=== PATIENT | female | born 1975 | race Asian ===

== ENCOUNTER 2020-11-02 21:37 | Inpatient (IN) | payer BC ==
[~2020-11-02] VITALS: Ht 162.6 cm; Wt 49.4 kg
[2020-11-02] MEDS ORDERED: ONDANSETRON HCL 4MG/2ML INJ IV STA (22:01)
[2020-11-02] MEDS ORDERED: AZITHROMYCIN 500 MG in DEXT 5% WATER 250 ML IV ONE (22:15)
[2020-11-02] MEDS ORDERED: SODIUM CHLORIDE 0.9% 1000ML BAG (SEPSIS BOLUS) IV ONE (22:15)
[2020-11-02] MEDS ORDERED: CEFTRIAXONE 1 G PREMIX 50 ML IV ONE (22:15)
[2020-11-02 22:46] LABS: HEMATOCRIT. 39.3 % (36.0-48.0); HEMOGLOBIN. 13.3 g/dL (12.0-16.0); MEAN CORPUSCULAR HEMOGLOBIN 28.5 pg (28.0-32.0); MEAN CORPUSCULAR VOLUME 84.3 fL (81.0-99.0); MEAN PLATELET VOLUME 6.9 fl (7.4-10.4); PLATELET 390 x1000/uL (130-400); RED BLOOD CELL COUNT 4.66 mill/uL (4.2-5.4); RED CELL DISTRIBUTION WIDTH 12.4 % (11.6-14.6)
[2020-11-02 22:50] LABS: CLARITY URINE CLEAR (CLEAR); COLOR URINE YELLOW (YELLOW); KETONES URINE 2+ (NEGATIVE); LEUKOCYTE ESTERASE URINE NEGATIVE (NEGATIVE); NITRITE URINE NEGATIVE (NEGATIVE); OCCULT BLOOD URINE NEGATIVE (NEGATIVE); PH URINE 7.5 (4.5-8.0); PROTEIN URINE NEGATIVE (NEGATIVE); SPECIFIC GRAVITY URINE 1.019 (1.005-1.030); UROBILINOGEN URINE 0.2 E.U./dL (0.2-1.0)
[2020-11-02 22:53] LABS: CHLORIDE 90 mEq/L (98-107)
[2020-11-02 22:55] LABS: INR 1.1; PROTHROMBIN TIME 11.4 sec (9.6-11.0)
[2020-11-02 22:56] LABS: HCG SCREEN NEGATIVE
[2020-11-02 23:36] LABS: PLATELET ESTIMATE NORMAL
[2020-11-03 01:06] LABS: CHLORIDE 91 mEq/L (98-107)
[2020-11-03] MEDS ORDERED: BACITRACIN ZINC OINT UDPKT TOP ONE (01:30)
[2020-11-03] MEDS ORDERED: CLONIDINE 0.1MG TABLET PO PRN (02:45)
[2020-11-03] MEDS ORDERED: MAGNESIUM/ALUMINUM HYDROXIDE/SIMETHICONE 30ML UDC PO PRN (02:45)
[2020-11-03] MEDS ORDERED: GUAIFENESIN 200MG/10ML SUGAR FREE UDC PO PRN (02:45)
[2020-11-03] MEDS ORDERED: IPRATROPIUM/ALBUTEROL 0.5-3(2.5)MG/3ML NEB NEB PRN (02:45)
[2020-11-03] MEDS ORDERED: ONDANSETRON HCL 4MG/2ML INJ IV PRN (02:45)
[2020-11-03] MEDS ORDERED: LORAZEPAM 2MG/ML CPJ IV PRN (02:45)
[2020-11-03] MEDS ORDERED: ACETAMINOPHEN 325MG TABLET PO PRN (02:45)
[2020-11-03] MEDS ORDERED: DOCUSATE SODIUM 100MG CAPSULE PO PRN (02:45)
[2020-11-03] MEDS ORDERED: DIPHENHYDRAMINE 50MG/ML VIAL IV PRN (02:45)
[2020-11-03] MEDS ORDERED: NA PHOS,M-B/NA PHOS,DI-BA ENEMA 118ML PR PRN (02:45)
[2020-11-03] MEDS ORDERED: HYDROCODONE/ACETAMINOPHEN 5/325MG TABLET PO PRN (02:45)
[2020-11-03] MEDS ORDERED: MORPHINE SULFATE 2 MG/ML CPJ (NOT FOR IM USE) IV PRN (02:45)
[2020-11-03 05:00] VITALS: BP 128/67
[2020-11-03] MEDS ORDERED: AMOX-494 MT (05:53)
[2020-11-03] MEDS ORDERED: ALBU05 NEB (05:56)
[2020-11-03] MEDS ORDERED: DOXY100C2 MT (05:56)
[2020-11-03] MEDS ORDERED: FLOV44 INH (05:56)
[2020-11-03] MEDS: SODIUM CHLORIDE 0.9% 1,000 ML IV SCH ×2 (06:18→17:10)
[2020-11-03 06:40] LABS: CHLORIDE 91 mEq/L (98-107)
[2020-11-03] MEDS ORDERED: INFLUENZA VACCINE 05/PF 0.5 ML VIAL IM ONE (07:00)
[2020-11-03] MEDS ORDERED: PNEUMOCOCCAL 23-VAL P-SAC VAC 0.5 ML IM ONE (07:00)
[2020-11-03 07:59] VITALS: BP 115/73
[2020-11-03] MEDS ORDERED: POTASSIUM CHLORIDE 20MEQ TABLET SR PO NR (09:00)
[2020-11-03] MEDS: ENOXAPARIN 40MG/0.4ML SYR SUBCUT SCH (09:08)
[2020-11-03 09:50] LABS: PHOSPHORUS 2.2 mg/dL (2.5-4.9)
[2020-11-03 12:16] VITALS: BP 106/54
[2020-11-03 16:08] VITALS: BP 118/68
[2020-11-03] MEDS ORDERED: AZITHROMYCIN 500 MG in DEXT 5% WATER 250 ML IV SCH ×2 (21:00→22:00)
[2020-11-03] MEDS: IPRATROPIUM/ALBUTEROL 0.5-3(2.5)MG/3ML NEB HHN SCH (21:16)
[2020-11-03] MEDS: BUDESONIDE 0.5MG/2ML NEB HHN SCH (21:17)
[2020-11-04] VITALS: BP 112/67
[2020-11-04 04:00] VITALS: BP 110/59
[2020-11-04] MEDS: SODIUM CHLORIDE 0.9% 1,000 ML IV SCH ×2 (05:25→19:15)
[2020-11-04 06:48] LABS: BASOPHILS % 0.2 % (0.0-2.0); EOSINOPHILS % 1.2 % (0.0-5.0); HEMATOCRIT. 32.9 % (36.0-48.0); HEMOGLOBIN. 11.5 g/dL (12.0-16.0); MEAN CORPUSCULAR VOLUME 82.7 fL (81.0-99.0); MEAN PLATELET VOLUME 7.3 fl (7.4-10.4); NEUTROPHILS % 75.6 % (40.0-76.0); PLATELET 335 x1000/uL (130-400); RED BLOOD CELL COUNT 3.98 mill/uL (4.2-5.4); RED CELL DISTRIBUTION WIDTH 12.5 % (11.6-14.6)
[2020-11-04 08:00] VITALS: BP 132/78
[2020-11-04] MEDS: IPRATROPIUM/ALBUTEROL 0.5-3(2.5)MG/3ML NEB HHN SCH ×2 (08:07→21:10)
[2020-11-04] MEDS: BUDESONIDE 0.5MG/2ML NEB HHN SCH ×2 (08:07→21:09)
[2020-11-04 08:41] LABS: CHLORIDE 89 mEq/L (98-107)
[2020-11-04] MEDS: ENOXAPARIN 40MG/0.4ML SYR SUBCUT SCH (08:45)
[2020-11-04 09:23] LABS: PHOSPHORUS 1.7 mg/dL (2.5-4.9)
[2020-11-04 09:25] LABS: LDL CHOLESTEROL 35 mg/dL (5-100)
[2020-11-04 09:26] LABS: T4 FREE 1.72 ng/dL (0.76-1.46)
[2020-11-04 09:28] LABS: HDL CHOLESTEROL 52 mg/dL (40-59)
[2020-11-04] MEDS ORDERED: POTASSIUM CHLORIDE 20MEQ TABLET SR PO SCH (10:30)
[2020-11-04 12:00] VITALS: BP 120/67
[2020-11-04] MEDS ORDERED: SODIUM PHOS,M-BASIC-D-BASIC 20 MM in DEXT 5% WATER 243.3333 ML IV SCH (12:00)
[2020-11-04 16:00] VITALS: BP 108/58
[2020-11-04 20:00] VITALS: BP 120/57
[2020-11-04] MEDS: DEMECLOCYCLINE HCL 300MG TABLET PO SCH (21:48)
[2020-11-05] VITALS: BP 120/75
[2020-11-05 04:00] VITALS: BP 109/52
[2020-11-05 06:36] LABS: HEMATOCRIT. 34.6 % (36.0-48.0); HEMOGLOBIN. 12.2 g/dL (12.0-16.0); MEAN CORPUSCULAR HEMOGLOBIN 29.3 pg (28.0-32.0); MEAN CORPUSCULAR VOLUME 82.8 fL (81.0-99.0); MEAN PLATELET VOLUME 6.8 fl (7.4-10.4); PLATELET 347 x1000/uL (130-400); RED BLOOD CELL COUNT 4.18 mill/uL (4.2-5.4); RED CELL DISTRIBUTION WIDTH 12.6 % (11.6-14.6)
[2020-11-05 06:37] LABS: CHLORIDE 94 mEq/L (98-107)
[2020-11-05 06:41] LABS: PHOSPHORUS 2.5 mg/dL (2.5-4.9)
[2020-11-05 08:00] VITALS: BP 113/60
[2020-11-05] MEDS: IPRATROPIUM/ALBUTEROL 0.5-3(2.5)MG/3ML NEB HHN SCH ×3 (08:07→21:19)
[2020-11-05] MEDS: BUDESONIDE 0.5MG/2ML NEB HHN SCH ×2 (08:07→21:19)
[2020-11-05] MEDS: DEMECLOCYCLINE HCL 300MG TABLET PO SCH ×2 (08:41→17:37)
[2020-11-05] MEDS: ENOXAPARIN 40MG/0.4ML SYR SUBCUT SCH (08:41)
[2020-11-05] MEDS: SODIUM CHLORIDE 0.9% 1,000 ML IV SCH ×2 (08:44→21:43)
[2020-11-05 11:35] LABS: PLATELET ESTIMATE NORMAL
[2020-11-05 12:00] VITALS: BP 118/67
[2020-11-05 16:00] VITALS: BP 116/64
[2020-11-05 20:00] VITALS: BP 139/87
[2020-11-06] VITALS: BP 114/67
[2020-11-06 04:00] VITALS: BP 119/63
[2020-11-06 08:19] VITALS: BP 126/74
[2020-11-06] MEDS: ENOXAPARIN 40MG/0.4ML SYR SUBCUT SCH (08:55)
[2020-11-06] MEDS: DEMECLOCYCLINE HCL 300MG TABLET PO SCH ×2 (08:55→17:35)
[2020-11-06] MEDS: IPRATROPIUM/ALBUTEROL 0.5-3(2.5)MG/3ML NEB HHN SCH ×2 (09:50→14:42)
[2020-11-06] MEDS: BUDESONIDE 0.5MG/2ML NEB HHN SCH (09:51)
[2020-11-06 12:10] VITALS: BP 124/78
[2020-11-06 16:00] VITALS: BP 116/78
[2020-11-06 20:00] VITALS: BP 132/74
[2020-11-07] VITALS: BP 123/72
[2020-11-07 04:00] VITALS: BP 119/71
[2020-11-07] MEDS: ENOXAPARIN 40MG/0.4ML SYR SUBCUT SCH (08:26)
[2020-11-07] MEDS: DEMECLOCYCLINE HCL 300MG TABLET PO SCH (08:26)
[2020-11-07 08:55] VITALS: BP 122/66
[2020-11-07] MEDS ORDERED: BUDESONIDE 0.5MG/2ML NEB HHN SCH (09:00)
[2020-11-07] MEDS: BUDESONIDE 0.5MG/2ML NEB HHN SCH (09:07)
[2020-11-07] MEDS: IPRATROPIUM/ALBUTEROL 0.5-3(2.5)MG/3ML NEB HHN SCH (09:07)
[2020-11-07 12:01] VITALS: BP 138/80
[2020-11-07 12:11] LABS: CHLORIDE 100 mEq/L (98-107)
[2020-11-07 15:15] VITALS: BP 122/68
[2020-11-07 15:42] VITALS: BP 128/68
== END 2020-11-07 16:19 | disposition home or self-care (01) | DRG 177 ==
LOC: ER 21:37 → 6WST 11-03 01:22 → ENRESERV 11-03 02:51
PROVIDERS: ADMIT Internal Medicine; ATTEND Internal Medicine
DX: J69.0 Pneumonitis due to inhalation of food and vomit (principal); G93.41 Metabolic encephalopathy; J96.00 Acute respiratory failure, unspecified whether with hypoxia or hypercapnia; E22.2 Syndrome of inappropriate secretion of antidiuretic hormone; R65.10 Systemic inflammatory response syndrome (SIRS) of non-infectious origin without acute organ dysfunction; D64.9 Anemia, unspecified; J45.909 Unspecified asthma, uncomplicated; I10 Essential (primary) hypertension; E87.6 Hypokalemia; E86.0 Dehydration; Z20.822 Contact with and (suspected) exposure to COVID-19; Z79.51 Long term (current) use of inhaled steroids; Z87.01 Personal history of pneumonia (recurrent)
CPT/HCPCS: 36415; 71045; 80048; 80053; 80061; 81003; 82533; 83605; 83735; 83930; 84100; 84295; 84439; 84443; 84484; 84703; 85025; 87426; 90686; 90732; 93005; 94640; 99285; C1893; J0456; J0696; J1650; J2405; J3490; J7030; J7060; J7626